=== PATIENT | female | born 1995 ===

== ENCOUNTER 2018-10-19 17:21 | Inpatient (IN) | payer BC ==
[2018-10-19] MEDS ORDERED: Water For Irrigation,Sterile 1,000 ML Container IRR PRN (17:37)
[2018-10-19] MEDS ORDERED: Misoprostol 200 MCG Tab PO PRN (17:37)
[2018-10-19] MEDS ORDERED: Nalbuphine 10 MG/1 ML Vial IVPUSH PRN (17:37)
[2018-10-19] MEDS ORDERED: Sodium Chloride 0.9% 10 ML SDV IV PRN (17:37)
[2018-10-19] MEDS ORDERED: Methylergonovine 0.2 MG/1 ML Amp IM PRN (17:37)
[2018-10-19] MEDS ORDERED: Lidocaine 1% 50 ML MDV INJECT PRN (17:37)
[2018-10-19] MEDS ORDERED: Sodium Chloride 0.9% 2.5 ML Syringe FLUSH PRN (17:37)
[2018-10-19] MEDS ORDERED: Tranexamic Acid 1,000 MG in Sodium Chloride 0.9% 100 ML IV PRN (17:37)
[2018-10-19] MEDS ORDERED: Sodium Chloride 0.9% 10 ML Syringe FLUSH PRN (17:37)
[2018-10-19] MEDS ORDERED: Carboprost Tromethamine 250 MCG/1 ML Amp IM PRN (17:37)
[2018-10-19] MEDS ORDERED: Terbutaline 1 MG/ML SDV SUBCUT PRN (17:40)
[2018-10-19] MEDS ORDERED: Misoprostol 25 MCG (1/4 of 100 MCG) Tab VAG PRN ×2 (17:40)
[2018-10-19] MEDS ORDERED: Oxytocin/0.9 % Sodium Chloride 30 UNIT/500 ML BAG IV SCH ×2 (17:45)
[2018-10-19] MEDS: Butorphanol 1 MG/ML SDV IVPUSH PRN (23:03)
[2018-10-20] MEDS: Lactated Ringers 1,000 ML IV SCH ×4 (00:55→14:01)
[2018-10-20] MEDS: Butorphanol 1 MG/ML SDV IVPUSH PRN ×2 (01:00→03:17)
--- NOTE | 2018-10-20 02:48 | PCM.PREANE ---
Preanesthetic Assessment - Anesthesia/Transfusion/Family Hx Anesthesia History: No Prior Anesthesia Family History of Anesthesia Reaction: No Transfusion History: No Prior Transfusion(s) Type of Transfusion Reactions: Reports: Unknown - Review of Systems General: No Symptoms Pulmonary: No Symptoms Cardiovascular: No Symptoms Gastrointestinal: No Symptoms Neurological: No Symptoms Other: Reports: None - Physical Assessment Height: 5 ft 2 in Weight: 105.687 kg ASA Class: 2 Mental Status: Alert & Oriented x3 Airway Class: Mallampati = 2 Dentition: Reports: Normal Dentition Thyro-Mental Finger Breadths: 3 Mouth Opening Finger Breadths: 3 ROM/Head Extension: Full Lungs: Clear to Auscultation, Normal Respiratory Effort Cardiovascular: Regular Rate, Regular Rhythm - Lab Values: Laboratory Last Values WBC 10.59 K/uL (4.0-11.0) 10/19/18 18:14 RBC 4.14 M/uL (4.30-5.90) L 10/19/18 18:14 Hgb 12.1 g/dL (12.0-16.0) 10/19/18 18:14 Hct 37.1 % (36.0-46.0) 10/19/18 18:14 MCV 89.6 fL (80.0-98.0) 10/19/18 18:14 MCH 29.2 pg (27.0-32.0) 10/19/18 18:14 MCHC 32.6 g/dL (31.0-37.0) 10/19/18 18:14 RDW Std Deviation 44.8 fl (28.0-62.0) 10/19/18 18:14 RDW Coeff of Otis 14 % (11.0-15.0) 10/19/18 18:14 Plt Count 246 K/uL (150-400) 10/19/18 18:14 MPV 11.50 fL (7.40-12.00) 10/19/18 18:14 Nucleated RBC % 0.0 /100WBC 10/19/18 18:14 Nucleated RBCs # 0 K/uL 10/19/18 18:14 Blood Type A POSITIVE 10/19/18 18:14 Antibody Screen NEGATIVE 10/19/18 18:14 - Allergies Allergies/Adverse Reactions: Allergies Allergy/AdvReac Type Severity Reaction Status Date / Time cinnamon Allergy Itching Verified 10/18/18 09:57 lavender (Lavandula Allergy Itching Verified 10/18/18 09:57 angustifolia) - Acknowledgements Anesthesia Type Planned: Epidural Pt an Appropriate Candidate for the Planned Anesthesia: Yes Alternatives and Risks of Anesthesia Discussed w Pt/Guardian: Yes Pt/Guardian Understands and Agrees with Anesthesia Plan: Yes PreAnesthesia Questionnaire HEENT History: Reports: None Cardiovascular History: Reports: None Respiratory History: Reports: None Gastrointestinal History: Reports: GERD Genitourinary History: Reports: None NEUROSURGICAL NURSE History: Reports: : 1 Para: 0 LMP (Approximate): Musculoskeletal History: Reports: None Neurological History: Reports: None Psychiatric History: Reports: Anxiety Endocrine/Metabolic History: Reports: Obesity/BMI 30+ Hematologic History: Reports: None Immunologic History: Reports: None Oncologic (Cancer) History: Reports: None Dermatologic History: Reports: None - Infectious Disease History Infectious Disease History: Reports: Chicken Pox - Past Surgical History Head Surgeries/Procedures: Reports: None HEENT Surgical History: Reports: None Cardiovascular Surgical History: Reports: None GI Surgical History: Reports: None Female Surgical History: Reports: None Endocrine Surgical History: Reports: None Musculoskeletal Surgical History: Reports: None Oncologic Surgical History: Reports: None Dermatological Surgical History: Reports: None - SUBSTANCE USE Smoking Status *Q: Never Smoker Second Hand Smoke Exposure: No Recreational Drug Use History: No - HOME MEDS Home Medications: Home Meds Vit #76/Iron,Carb/Fa [Pnv 29-1 Tablet] 1 tab PO DAILY 09/20/18 [History ] - CURRENT (IN HOUSE) MEDS Current Meds: Current Medications Butorphanol Tartrate (Stadol) 1 mg IVPUSH Q1H PRN PRN Reason: Pain Last Admin: 10/20/18 01:00 Dose: 1 mg Carboprost Tromethamine (Hemabate Ds) 250 mcg IM ASDIRECTED PRN PRN Reason: Post Hemorrhage Lactated Ringer's (Ringers, Lactated) 1,000 mls @ 150 mls/hr IV ASDIRECTED ABDIRAHMAN Last Admin: 10/20/18 00:55 Dose: 500 mls/hr Oxytocin/Sodium Chloride (Oxytocin 30 Unit/500 Ml-Ns) 30 unit in 500 mls @ 999 mls/hr IV TITRATE ABDIRAHMAN Tranexamic Acid 1,000 mg/ (Sodium Chloride) 110 mls @ 660 mls/hr IV ONETIME PRN PRN Reason: Bleeding Oxytocin/Sodium Chloride (Oxytocin 30 Unit/500 Ml-Ns) 30 unit in 500 mls @ 2 mls/hr IV TITRATE ABDIRAHMAN; Protocol Last Admin: 10/20/18 01:05 Dose: 2 munits/min, 2 mls/hr Lidocaine HCl (Xylocaine 1%) 50 ml INJECT ONETIME PRN PRN Reason: Laceration repair Methylergonovine Maleate (Methergine) 0.2 mg IM ASDIRECTED PRN PRN Reason: Post Hemorrhage Misoprostol (Cytotec) 200 mcg PO ONETIME PRN PRN Reason: Post Hemorrhage Misoprostol (Cytotec) 25 mcg VAG ONETIME PRN PRN Reason: Cervical Ripening Last Admin: 10/19/18 18:46 Dose: 25 mcg Misoprostol (Cytotec) 25 mcg VAG Q4H PRN PRN Reason: Cervical Ripening Nalbuphine HCl (Nubain) 10 mg IVPUSH Q1H PRN PRN Reason: Pain (severe 7-10) Sodium Chloride (Saline Flush) 10 ml FLUSH ASDIRECTED PRN PRN Reason: Keep Vein Open Sodium Chloride (Saline Flush) 2.5 ml FLUSH ASDIRECTED PRN PRN Reason: Keep Vein Open Sodium Chloride (Normal Saline) 10 ml IV ASDIRECTED PRN PRN Reason: IV Use Sterile Water (Sterile Water For Irrigation) 1,000 ml IRR ASDIRECTED PRN PRN Reason: delivery Terbutaline Sulfate (Brethine) 0.25 mg SUBCUT ASDIRECTED PRN PRN Reason: Tacysystole
[2018-10-20] MEDS ORDERED: fentaNYL 100 MCG/2 ML SDV ONE (17:42)
[2018-10-20] MEDS ORDERED: Bupivacaine 0.5% 30 ML SDV ONE (17:42)
[2018-10-20] MEDS ORDERED: Morphine PF 10 MG/10 ML SDV ONE (17:51)
[2018-10-20] MEDS ORDERED: ceFAZolin 1 GM Vial ONE (17:54)
[2018-10-20] MEDS ORDERED: Sodium Chloride 0.9% 40 ML ONE (17:54)
[2018-10-20] MEDS ORDERED: fentaNYL 100 MCG/2 ML SDV IVPUSH PRN (18:54)
[2018-10-20] MEDS ORDERED: Nalbuphine 10 MG/1 ML Vial IVPUSH PRN (18:54)
[2018-10-20] MEDS ORDERED: Ondansetron 4 MG/2 ML SDV IVPUSH PRN ×2 (18:54→19:10)
[2018-10-20] MEDS ORDERED: Acetaminophen/oxyCODONE 325-5 MG Tab PO PRN ×2 (18:54→19:10)
[2018-10-20] MEDS ORDERED: Naloxone 0.4 MG/ML Syringe IVPUSH PRN (18:54)
[2018-10-20] MEDS ORDERED: diphenhydrAMINE 50 MG/ML SDV IVPUSH PRN ×2 (18:54→19:10)
--- NOTE | 2018-10-20 19:02 | PCM.OPNOTE ---
<Megan Fernandes - Last Filed: 10/20/18 19:13> - General Post-Op/Procedure Note Date of Surgery/Procedure: 10/20/18 Operative Procedure(s): section Findings: delivery of live female infant. Weight 3300g. Apgars 9/9. 3vc. Placenta intact. Pre Op Diagnosis: 28y 40/4 induction of labor for post dates. Primary LTCS for arrest of descent Post-Op Diagnosis: same Anesthesia Technique: Epidural, Spinal Primary Surgeon: Alexa Du Maxillofacial Prosthodontist: Megan Fernandes Role of Maxillofacial Prosthodontist: 4th year medical student Fluid Replacement, Intraop: 1,400 EBL in mLs: 600 Condition: Stable <Alexa Du - Last Filed: 10/20/18 19:19> - General Post-Op/Procedure Note Complications: none known Free Text/Narrative:: Intake & Output 10/20/18 10/20/18 10/20/18 06:59 14:59 22:59 Intake Total 1400 Balance 1400 [id number]
[2018-10-20] MEDS ORDERED: Lanolin 100% Cream 7 GM Tube TOP PRN (19:10)
[2018-10-20] MEDS ORDERED: Bisacodyl 10 MG Supp RECTAL PRN (19:10)
[2018-10-20] MEDS ORDERED: Ibuprofen 800 MG Tab PO PRN (19:10)
[2018-10-20] MEDS ORDERED: Aluminum Hydroxide/Magnesium Hydroxide/Simethicone Susp 30 ML Cup PO PRN (19:10)
[2018-10-20] MEDS ORDERED: Lactated Ringers 1,000 ML IV ONE (19:15)
[2018-10-20] MEDS ORDERED: Ketorolac 30 MG/ML SDV ONE (19:25)
--- NOTE | 2018-10-20 19:44 | PCM.POSTAN ---
POST ANESTHESIA ASSESSMENT - MENTAL STATUS Mental Status: Alert - VITAL SIGNS Pulse Rate: 78 SaO2: 99 Resp Rate: 20 Blood Pressure: 126/78 Temperature: 38.8 C - RESPIRATORY Respiratory Status: Respiratory Rate WNL - CARDIOVASCULAR CV Status: Pulse Rate WNL - GASTROINTESTINAL GI Status: No Symptoms - PAIN Pain Score: 1 (Some soreness) - POST OP HYDRATION Hydration Status: Adequate & Stable (Doing well. No problems noted. Ready for transfer to floor.)
[2018-10-21] MEDS: Ketorolac 30 MG/ML SDV IVPUSH SCH ×5 (01:20→20:48)
--- NOTE | 2018-10-21 02:46 | OR ---
SURGEON: Alexa Du M.D. DATE OF PROCEDURE: 10/20/2018 PREOPERATIVE DIAGNOSES: 1. A 40-4/7 weeks intrauterine . 2. Arrest of descent. POSTOPERATIVE DIAGNOSES: 1. A 40-4/7 weeks intrauterine . 2. Arrest of descent. PROCEDURE: Primary low-transverse section. PRIMARY SURGEON: Alexa Du M.D. ANESTHESIA: Epidural converted to spinal. ESTIMATED BLOOD LOSS: 600 mL. FLUIDS: 1400 mL crystalloid in OR. COMPLICATIONS: None. FINDINGS: Viable female. score 9 at one minute and 9 at five minutes. Weight of 3300 g. Intact placenta, 3-vessel cord. Normal-appearing pelvis. DISPOSITION: Infant to Nursery, mom in PACU, stable. PROCEDURE DETAILS: Fransico is a 23-year-old G1, P0, at 40-3/7 weeks gestational age.She was admitted on the evening of 10/19/2018 for scheduled elective induction of labor due to patient request. She was initially unfavorable and initiated on Cytotec ripening, actually responded quite nicely to this and had category 1 heart tones. She became increasingly uncomfortable through the night hours. Underwent regional anesthesia in the form of an epidural. By the following morning, she was found to be 7 cm, 90% effaced, and at -1 station. Within the next 2 hours, progressed to 8 to 9 cm, underwent amniotomy. Light meconium-stained fluid was noted. She continued to progress, and shortly after 2 p.m., she was found to be complete, 100% effaced at 0 station, began pushing efforts. She pushed for the next 3 hours, was able to push to a +2 station but made minimal progress thereafter for approximately the last hour of pushing. Therefore, at assessment, I discussed options with the patient including potential for operative vaginal delivery for vacuum or delivery. The patient and family decided to proceed with delivery. Risks of procedure discussed with proper consent obtained. The patient was taken to the operating room where she underwent spinal anesthetic as her epidural had been dislodged. She became more comfortable once spinal was in. She was placed in a supine frog-leg position with leftward tilt. She was prepped and draped in usual sterile fashion. SCDs to lower extremities. Leary to gravity. Received Ancef prophylactically. Time-out was performed. Labor and delivery nurse was situated to allow for a vaginal hand during delivery. After the patient was prepped and draped in usual sterile fashion, anesthesia was tested and found to be adequate. A Pfannenstiel skin incision was created and carried down to the level of the rectus fascia, which was incised in the midline and lateralized on either side sharply and bluntly. The superior aspect of the fascia was tented upward, dissected sharply and bluntly from underlying muscles. In a similar manner, it was performed at the inferior aspect of the fascia. Rectus muscles and peritoneum were , and the peritoneum was entered. Rectus muscles and peritoneum were lateralized bluntly. Uterine position and position palpated. Self-retaining retractor now gently placed. Uterovesical reflection was visualized. Bladder flap was created sharply and bluntly. Bladder was mobilized from the lower uterine segment. Low transverse hysterotomy was now performed. Vaginal hand with labor and delivery nurse was used to deliver baby's head out of the pelvis. I was able to secure the head, flex, and deliver from the remainder of the pelvis. Fundal pressure was applied. The infant's head was delivered followed by shoulders, trunk, and remainder of body without difficulty. The infant's oropharynx and nares were bulb suctioned. The cord was clamped x2 and cut. Infant was handed off to the attending cable swager. Cord arterial, cord venous, cord blood samples obtained. The placenta was now delivered. Uterine cavity was cleared of all clot and debris. Hysterotomy repaired using 0 Vicryl in continuous running locked fashion followed by re-imbricating layer. Two areas of oozing were noted and were cauterized. Hemostasis thereafter evident. Posterior aspect of uterus inspected. No defects or hematomas were found to be forming. The areas were well irrigated and suction dried. Anterior aspect of the uterus inspected. Colonic gutters were cleared of all clot and debris, well irrigated, suction dried. Hysterotomy was found to be hemostatic. Self-retaining retractor gently placed. Bladder blade was placed. Once again inspected. Hysterotomy was found to be hemostatic. Bladder blade was removed. The rectus muscle and peritoneum were now reapproximated using 0 Vicryl in inverted mattress suture technique. Anterior aspect of muscle and posterior aspect of the fascia were closely inspected. Any areas of oozing were cauterized. Rectus fascia was reapproximated using 0 Vicryl in continuous running fashion beginning laterally on each side and meeting in the midline. Subcutaneous tissue was well irrigated and suction dried. Any areas of oozing were cauterized. Deep subcutaneous tissue was reapproximated using 3-0 plain in continuous running fashion. The skin edges were now reapproximated using 3-0 chromic on a Tre needle in subcuticular fashion followed by half-inch Steri-Strips. Sponge, instrument, and needle count was correct x2. The patient tolerated the procedure well overall. She will go to PACU in stable condition, to [facility]. LUISA / JACQUIE /[id number] KIMI
[2018-10-21] MEDS: Simethicone 80 MG Tab.Chew PO SCH ×4 (03:15→19:51)
--- NOTE | 2018-10-21 07:59 | PCM.PNPP ---
<Megan Fernandes - Last Filed: 10/21/18 07:56> - General Info Date of Service: 10/21/18 Functional Status: Reports: Pain Controlled - Review of Systems General: Reports: No Symptoms. Denies: Fever, Chills HEENT: Reports: No Symptoms. Denies: Headaches Pulmonary: Reports: No Symptoms. Denies: Shortness of Breath Cardiovascular: Reports: No Symptoms. Denies: Chest Pain, Palpitations Gastrointestinal: Reports: Abdominal Pain (Mild, but she has not gotten out of bed yet.) Genitourinary: Reports: No Symptoms (Catheter still in place ) Musculoskeletal: Reports: No Symptoms Skin: Reports: No Symptoms Neurological: Reports: No Symptoms Psychiatric: Reports: No Symptoms - General Info Date of Service: 10/21/18 - Patient Data Vital Signs - Most Recent: Last Vital Signs Temp 97.6 F 10/21/18 04:26 Pulse 89 10/21/18 06:00 Resp 15 10/21/18 06:00 BP 114/60 10/21/18 04:26 Pulse Ox 99 10/21/18 06:00 Weight - Most Recent: 105.687 kg I&O - Last 24 Hours: Intake & Output 10/20/18 10/21/18 10/21/18 22:59 06:59 14:59 Intake Total 3000 1215 Output Total 400 450 Balance 2600 765 Lab Results - Last 24 Hours: Laboratory Results - last 24 hr 10/20/18 10/21/18 Range/Units 18:17 05:40 Hgb 10.2 L (12.0-16.0) g/dL Hct 31.6 L (36.0-46.0) % Cord ABG pH 7.309 (7.18-7.38) Cord ABG Base Excess -9 (-10--2) Cord VBG Base Excess Not Reportable Med Orders - Current: Current Medications Al Hydroxide/Mg Hydroxide (Mag-Al Plus) 30 ml PO Q8H PRN PRN Reason: Heartburn Bisacodyl (Dulcolax) 10 mg RECTAL ONETIME PRN PRN Reason: Constipation Carboprost Tromethamine (Hemabate Ds) 250 mcg IM ASDIRECTED PRN PRN Reason: Post Hemorrhage Diphenhydramine HCl (Benadryl) 25 mg IVPUSH Q4H PRN PRN Reason: Itching Stop: 10/21/18 18:54 Diphenhydramine HCl (Benadryl) 25 mg IVPUSH Q6H PRN PRN Reason: Itching or Nausea Docusate Sodium (Colace) 100 mg PO BID [facility] Emollient Ointment (Lansinoh Hpa) 0 gm TOP ASDIRECTED PRN PRN Reason: Sore Nipples Fentanyl (Sublimaze) 50 mcg IVPUSH Q1H PRN PRN Reason: Pain (severe 7-10) Oxytocin/Sodium Chloride (Oxytocin 30 Unit/500 Ml-Ns) 30 unit in 500 mls @ 999 mls/hr IV TITRATE ABDIRAHMAN Tranexamic Acid 1,000 mg/ (Sodium Chloride) 110 mls @ 660 mls/hr IV ONETIME PRN PRN Reason: Bleeding Oxytocin/Sodium Chloride (Oxytocin 30 Unit/500 Ml-Ns) 30 unit in 500 mls @ 2 mls/hr IV TITRATE ABDIRAHMAN; Protocol Last Titration: 10/20/18 16:30 Dose: 14 munits/min, 14 mls/hr Ibuprofen (Motrin) 800 mg PO Q8H PRN PRN Reason: mild pain or fever Ketorolac Tromethamine (Toradol) 30 mg IVPUSH Q6H ABDIRAHMAN Stop: 10/21/18 19:16 Last Admin: 10/21/18 07:50 Dose: 30 mg Methylergonovine Maleate (Methergine) 0.2 mg IM ASDIRECTED PRN PRN Reason: Post Hemorrhage Nalbuphine HCl (Nubain) 5 mg IVPUSH ASDIRECTED PRN PRN Reason: Itching Naloxone HCl (Narcan) 0.1 mg IVPUSH ONETIME PRN PRN Reason: Respiratory Depression Stop: 10/21/18 18:54 Ondansetron HCl (Zofran) 4 mg IVPUSH Q6H PRN PRN Reason: Nausea Ondansetron HCl (Zofran) 4 mg IVPUSH Q4H PRN PRN Reason: Nausea/Vomiting Oxycodone/Acetaminophen (Percocet 325-5 Mg) 2 tab PO Q6H PRN PRN Reason: Pain (moderate 4-6) Oxycodone/Acetaminophen (Percocet 325-5 Mg) 1 tab PO Q4H PRN PRN Reason: Pain (moderate 4-6) Oxycodone/Acetaminophen (Percocet 325-5 Mg) 2 tab PO Q4H PRN PRN Reason: Pain (moderate 4-6) Simethicone (Simethicone) 160 mg PO QID [facility] Last Admin: 10/21/18 07:20 Dose: Not Given Sodium Chloride (Saline Flush) 10 ml FLUSH ASDIRECTED PRN PRN Reason: Keep Vein Open Sodium Chloride (Saline Flush) 2.5 ml FLUSH ASDIRECTED PRN PRN Reason: Keep Vein Open Sodium Chloride (Normal Saline) 10 ml IV ASDIRECTED PRN PRN Reason: IV Use Terbutaline Sulfate (Brethine) 0.25 mg SUBCUT ASDIRECTED PRN PRN Reason: Tacysystole Discontinued Medications Bupivacaine HCl (Marcaine 0.5%) Confirm Administered Dose 30 ml .ROUTE .STK-MED ONE Stop: 10/20/18 17:43 Butorphanol Tartrate (Stadol) 1 mg IVPUSH Q1H PRN PRN Reason: Pain Last Admin: 10/20/18 03:17 Dose: 1 mg Cefazolin Sodium (Ancef) Confirm Administered Dose 2 gm .ROUTE .STK-MED ONE Stop: 10/20/18 17:55 Fentanyl (Sublimaze) Confirm Administered Dose 100 mcg .ROUTE .STK-MED ONE Stop: 10/20/18 17:43 Lactated Ringer's (Ringers, Lactated) 1,000 mls @ 150 mls/hr IV ASDIRECTED [facility] Last Admin: 10/20/18 14:01 Dose: 150 mls/hr Fentanyl/Bupivacaine HCl (Vmmxpbmo-Kakxo-Ie 2 Mcg/Ml-0.125%) Confirm Administered Dose 100 mls @ as directed .ROUTE .STK-MED ONE Stop: 10/20/18 03:03 Fentanyl/Bupivacaine HCl (Sdwwmeqi-Bvsom-Uw 2 Mcg/Ml-0.125%) Confirm Administered Dose 100 mls @ as directed .ROUTE .STK-MED ONE Stop: 10/20/18 10:18 Acetaminophen (Ofirmev) Confirm Administered Dose 100 mls @ as directed IV .STK- MED ONE Stop: 10/20/18 17:43 Sodium Chloride (Normal Saline) Confirm Administered Dose 40 mls @ as directed .ROUTE .STK-MED ONE Stop: 10/20/18 17:55 Lactated Ringer's (Ringers, Lactated) 1,000 mls @ 125 mls/hr IV ASDIRECTED ONE Stop: 10/21/18 03:14 Ketorolac Tromethamine (Toradol) Confirm Administered Dose 30 mg .ROUTE .STK- MED ONE Stop: 10/20/18 19:26 Lidocaine HCl (Xylocaine 1%) 50 ml INJECT ONETIME PRN PRN Reason: Laceration repair Misoprostol (Cytotec) 200 mcg PO ONETIME PRN PRN Reason: Post Hemorrhage Misoprostol (Cytotec) 25 mcg VAG ONETIME PRN PRN Reason: Cervical Ripening Last Admin: 10/19/18 18:46 Dose: 25 mcg Misoprostol (Cytotec) 25 mcg VAG Q4H PRN PRN Reason: Cervical Ripening Morphine Sulfate (Duramorph Pf) Confirm Administered Dose 10 mg .ROUTE .STK-MED ONE Stop: 10/20/18 17:52 Nalbuphine HCl (Nubain) 10 mg IVPUSH Q1H PRN PRN Reason: Pain (severe 7-10) Sterile Water (Sterile Water For Irrigation) 1,000 ml IRR ASDIRECTED PRN PRN Reason: delivery - Infant Interaction Infant Disposition, : in Room with Family Interaction: Unable to Hold at this Time Feeding: Breastfed Infant; Nursed Well Support Person: , Mother - Recovery Exam Fundal Tone: Firm Fundal Level: 1 Fingerbreadths Below Umbilicus Fundal Placement: Midline Lochia Amount: Scant Lochia Color: Rubra/Red Episiotomy/Laceration: None Bladder Status: Indwelling Catheter in Place Urinary Elimination: Indwelling Catheter - Exam General: Alert, Oriented HEENT: Pupils Equal Neck: Supple Lungs: Clear to Auscultation, Normal Respiratory Effort Cardiovascular: Regular Rate, Regular Rhythm GI/Abdominal Exam: Normal Bowel Sounds, Soft, Non-Tender, No Organomegaly, No Distention, No Abnormal Bruit, No Mass, Pelvis Stable Extremities: Normal Inspection, Normal Range of Motion, Non-Tender, No Pedal Edema, Normal Capillary Refill Skin: Warm, Dry, Intact Wound/Incisions: Healing Well, Dressing Dry and Intact Neurological: No New Focal Deficit Psy/Mental Status: Alert, Normal Affect, Normal Mood - Problem List & Annotations (1) delivery delivered SNOMED Code(s): 061941847 Code(s): O82 - ENCOUNTER FOR DELIVERY WITHOUT INDICATION Status: Acute Current Visit: Yes (2) Arrested labor SNOMED Code(s): 60885726 Code(s): O62.1 - SECONDARY UTERINE INERTIA Status: Acute Current Visit: Yes - Problem List Review Problem List Initiated/Reviewed/Updated: Yes - Assessment Assessment:: POD1 s/p primary LTCS well Pain well controlled - Plan Plan:: Regular diet as tolerated Pain control PRN Ambulate PRN Remove doe today Routine care May go home tomorrow if diet is well tolerated and pain is controlled with oral medications <Alexa Du - Last Filed: 10/21/18 11:04> - Patient Data Vital Signs - Most Recent: Last Vital Signs Temp 36.4 C 10/21/18 07:15 Pulse 100 10/21/18 10:00 Resp 17 10/21/18 10:00 BP 111/59 L 10/21/18 07:15 Pulse Ox 97 10/21/18 10:00 I&O - Last 24 Hours: Intake & Output 10/20/18 10/21/18 10/21/18 22:59 06:59 14:59 Intake Total 3000 1215 Output Total 400 450 Balance 2600 765 Lab Results - Last 24 Hours: Laboratory Results - last 24 hr 10/20/18 10/21/18 Range/Units 18:17 05:40 Hgb 10.2 L (12.0-16.0) g/dL Hct 31.6 L (36.0-46.0) % Cord ABG pH 7.309 (7.18-7.38) Cord ABG Base Excess -9 (-10--2) Cord VBG Base Excess Not Reportable Med Orders - Current: Current Medications Al Hydroxide/Mg Hydroxide (Mag-Al Plus) 30 ml PO Q8H PRN PRN Reason: Heartburn Bisacodyl (Dulcolax) 10 mg RECTAL ONETIME PRN PRN Reason: Constipation Carboprost Tromethamine (Hemabate Ds) 250 mcg IM ASDIRECTED PRN PRN Reason: Post Hemorrhage Diphenhydramine HCl (Benadryl) 25 mg IVPUSH Q4H PRN PRN Reason: Itching Stop: 10/21/18 18:54 Diphenhydramine HCl (Benadryl) 25 mg IVPUSH Q6H PRN PRN Reason: Itching or Nausea Docusate Sodium (Colace) 100 mg PO BID [facility] Last Admin: 10/21/18 09:12 Dose: 100 mg Emollient Ointment (Lansinoh Hpa) 0 gm TOP ASDIRECTED PRN PRN Reason: Sore Nipples Fentanyl (Sublimaze) 50 mcg IVPUSH Q1H PRN PRN Reason: Pain (severe 7-10) Oxytocin/Sodium Chloride (Oxytocin 30 Unit/500 Ml-Ns) 30 unit in 500 mls @ 999 mls/hr IV TITRATE ABDIRAHMAN Tranexamic Acid 1,000 mg/ (Sodium Chloride) 110 mls @ 660 mls/hr IV ONETIME PRN PRN Reason: Bleeding Oxytocin/Sodium Chloride (Oxytocin 30 Unit/500 Ml-Ns) 30 unit in 500 mls @ 2 mls/hr IV TITRATE [facility]; Protocol Last Titration: 10/20/18 16:30 Dose: 14 munits/min, 14 mls/hr Ibuprofen (Motrin) 800 mg PO Q8H PRN PRN Reason: mild pain or fever Ketorolac Tromethamine (Toradol) 30 mg IVPUSH Q6H [facility] Stop: 10/21/18 19:16 Last Admin: 10/21/18 09:02 Dose: Not Given Methylergonovine Maleate (Methergine) 0.2 mg IM ASDIRECTED PRN PRN Reason: Post Hemorrhage Nalbuphine HCl (Nubain) 5 mg IVPUSH ASDIRECTED PRN PRN Reason: Itching Naloxone HCl (Narcan) 0.1 mg IVPUSH ONETIME PRN PRN Reason: Respiratory Depression Stop: 10/21/18 18:54 Ondansetron HCl (Zofran) 4 mg IVPUSH Q6H PRN PRN Reason: Nausea Ondansetron HCl (Zofran) 4 mg IVPUSH Q4H PRN PRN Reason: Nausea/Vomiting Oxycodone/Acetaminophen (Percocet 325-5 Mg) 2 tab PO Q6H PRN PRN Reason: Pain (moderate 4-6) Oxycodone/Acetaminophen (Percocet 325-5 Mg) 1 tab PO Q4H PRN PRN Reason: Pain (moderate 4-6) Oxycodone/Acetaminophen (Percocet 325-5 Mg) 2 tab PO Q4H PRN PRN Reason: Pain (moderate 4-6) Simethicone (Simethicone) 160 mg PO QID [facility] Last Admin: 10/21/18 07:20 Dose: Not Given Sodium Chloride (Saline Flush) 10 ml FLUSH ASDIRECTED PRN PRN Reason: Keep Vein Open Sodium Chloride (Saline Flush) 2.5 ml FLUSH ASDIRECTED PRN PRN Reason: Keep Vein Open Sodium Chloride (Normal Saline) 10 ml IV ASDIRECTED PRN PRN Reason: IV Use Terbutaline Sulfate (Brethine) 0.25 mg SUBCUT ASDIRECTED PRN PRN Reason: Tacysystole Discontinued Medications Bupivacaine HCl (Marcaine 0.5%) Confirm Administered Dose 30 ml .ROUTE .STK-MED ONE Stop: 10/20/18 17:43 Butorphanol Tartrate (Stadol) 1 mg IVPUSH Q1H PRN PRN Reason: Pain Last Admin: 10/20/18 03:17 Dose: 1 mg Cefazolin Sodium (Ancef) Confirm Administered Dose 2 gm .ROUTE .STK-MED ONE Stop: 10/20/18 17:55 Fentanyl (Sublimaze) Confirm Administered Dose 100 mcg .ROUTE .STK-MED ONE Stop: 10/20/18 17:43 Lactated Ringer's (Ringers, Lactated) 1,000 mls @ 150 mls/hr IV ASDIRECTED [facility] Last Admin: 10/20/18 14:01 Dose: 150 mls/hr Fentanyl/Bupivacaine HCl (Vqgpcusd-Yjgfv-Ug 2 Mcg/Ml-0.125%) Confirm Administered Dose 100 mls @ as directed .ROUTE .STK-MED ONE Stop: 10/20/18 03:03 Fentanyl/Bupivacaine HCl (Qksxvdfd-Uuqgt-Sz 2 Mcg/Ml-0.125%) Confirm Administered Dose 100 mls @ as directed .ROUTE .STK-MED ONE Stop: 10/20/18 10:18 Acetaminophen (Ofirmev) Confirm Administered Dose 100 mls @ as directed IV .STK- MED ONE Stop: 10/20/18 17:43 Sodium Chloride (Normal Saline) Confirm Administered Dose 40 mls @ as directed .ROUTE .STK-MED ONE Stop: 10/20/18 17:55 Lactated Ringer's (Ringers, Lactated) 1,000 mls @ 125 mls/hr IV ASDIRECTED ONE Stop: 10/21/18 03:14 Ketorolac Tromethamine (Toradol) Confirm Administered Dose 30 mg .ROUTE .STK- MED ONE Stop: 10/20/18 19:26 Lidocaine HCl (Xylocaine 1%) 50 ml INJECT ONETIME PRN PRN Reason: Laceration repair Misoprostol (Cytotec) 200 mcg PO ONETIME PRN PRN Reason: Post Hemorrhage Misoprostol (Cytotec) 25 mcg VAG ONETIME PRN PRN Reason: Cervical Ripening Last Admin: 10/19/18 18:46 Dose: 25 mcg Misoprostol (Cytotec) 25 mcg VAG Q4H PRN PRN Reason: Cervical Ripening Morphine Sulfate (Duramorph Pf) Confirm Administered Dose 10 mg .ROUTE .STK-MED ONE Stop: 10/20/18 17:52 Nalbuphine HCl (Nubain) 10 mg IVPUSH Q1H PRN PRN Reason: Pain (severe 7-10) Sterile Water (Sterile Water For Irrigation) 1,000 ml IRR ASDIRECTED PRN PRN Reason: delivery - My Orders Last 24 Hours: My Active Orders 10/20/18 19:10 Patient Status [ADT] Routine Ambulate [RC] PER UNIT ROUTINE Communication Order [RC] PER UNIT ROUTINE Communication Order [RC] PER UNIT ROUTINE Communication Order [RC] Per Unit Routine May Shower [RC] ASDIRECTED Notify Provider Intake and Out [RC] ASDIRECTED Notify Provider Vital Signs [RC] ASDIRECTED RT Incentive Spirometry [RC] Q2HWA Vital Signs [RC] PER UNIT ROUTINE Acetaminophen/oxyCODONE [Percocet 325-5 MG] 1 tab PO Q4H PRN Acetaminophen/oxyCODONE [Percocet 325-5 MG] 2 tab PO Q4H PRN Alum Hydrox/Mag Hydrox/Simeth [Mag-Al Plus] 30 ml PO Q8H PRN Bisacodyl [Dulcolax] 10 mg RECTAL ONETIME PRN Ibuprofen [Motrin] 800 mg PO Q8H PRN Lanolin [Lansinoh HPA] See Dose Instructions TOP ASDIRECTED PRN Ondansetron [Zofran] 4 mg IVPUSH Q4H PRN diphenhydrAMINE [Benadryl] 25 mg IVPUSH Q6H PRN Abdominal Binder [OM.PC] Routine Assess Lochia [WOMSER] Per Unit Routine Assess Uterine Involution [WOMSER] Per Unit Routine Breast Pump [WOMSER] Per Unit Routine Heat Therapy [OM.PC] Routine Ice Therapy [OM.PC] Routine Peripheral IV Discontinue [OM.PC] Routine Sequential Compression Device [OM.PC] Per Unit Routine 10/20/18 19:11 Antiembolic Devices [RC] PER UNIT ROUTINE 10/20/18 19:15 Ketorolac [Toradol] 30 mg IVPUSH Q6H 10/20/18 21:00 Docusate Sodium [Colace] 100 mg PO BID 10/20/18 Dinner Regular Diet [DIET] 10/21/18 00:00 Simethicone 160 mg PO QID - Plan Plan:: Patient seen and examined--agree with above
[2018-10-21] MEDS: Docusate Sodium 100 MG Cap PO SCH ×2 (09:12→20:49)
[2018-10-22] MEDS: Simethicone 80 MG Tab.Chew PO SCH ×3 (01:28→11:43)
[2018-10-22] MEDS: Acetaminophen/oxyCODONE 325-5 MG Tab PO PRN ×3 (02:57→13:45)
--- NOTE | 2018-10-22 07:32 | PCM.PNPP ---
<Megan Fernandes - Last Filed: 10/22/18 07:29> - General Info Date of Service: 10/22/18 Functional Status: Reports: Pain Controlled - Review of Systems General: Reports: No Symptoms. Denies: Fever, Chills HEENT: Reports: No Symptoms. Denies: Headaches Pulmonary: Reports: No Symptoms. Denies: Shortness of Breath, Pleuritic Chest Pain Cardiovascular: Reports: No Symptoms Gastrointestinal: Reports: Abdominal Pain (Incisional site pain. Cramping with attempts at and pumping) Genitourinary: Reports: No Symptoms. Denies: Dysuria Musculoskeletal: Reports: No Symptoms Skin: Reports: No Symptoms Neurological: Reports: No Symptoms Psychiatric: Reports: No Symptoms - General Info Date of Service: 10/22/18 - Patient Data Vital Signs - Most Recent: Last Vital Signs Temp 97.3 F 10/22/18 05:14 Pulse 98 10/22/18 05:14 Resp 18 10/22/18 05:14 BP 116/74 10/22/18 05:14 Pulse Ox 99 10/22/18 05:14 Weight - Most Recent: 105.687 kg I&O - Last 24 Hours: Intake & Output 10/21/18 10/22/18 10/22/18 22:59 06:59 14:59 Intake Total 300 Output Total 800 Balance -500 Med Orders - Current: Current Medications Al Hydroxide/Mg Hydroxide (Mag-Al Plus) 30 ml PO Q8H PRN PRN Reason: Heartburn Bisacodyl (Dulcolax) 10 mg RECTAL ONETIME PRN PRN Reason: Constipation Carboprost Tromethamine (Hemabate Ds) 250 mcg IM ASDIRECTED PRN PRN Reason: Post Hemorrhage Diphenhydramine HCl (Benadryl) 25 mg IVPUSH Q6H PRN PRN Reason: Itching or Nausea Docusate Sodium (Colace) 100 mg PO BID [facility] Last Admin: 10/21/18 20:49 Dose: 100 mg Emollient Ointment (Lansinoh Hpa) 0 gm TOP ASDIRECTED PRN PRN Reason: Sore Nipples Fentanyl (Sublimaze) 50 mcg IVPUSH Q1H PRN PRN Reason: Pain (severe 7-10) Oxytocin/Sodium Chloride (Oxytocin 30 Unit/500 Ml-Ns) 30 unit in 500 mls @ 999 mls/hr IV TITRATE [facility] Tranexamic Acid 1,000 mg/ (Sodium Chloride) 110 mls @ 660 mls/hr IV ONETIME PRN PRN Reason: Bleeding Oxytocin/Sodium Chloride (Oxytocin 30 Unit/500 Ml-Ns) 30 unit in 500 mls @ 2 mls/hr IV TITRATE [facility]; Protocol Last Titration: 10/20/18 16:30 Dose: 14 munits/min, 14 mls/hr Ibuprofen (Motrin) 800 mg PO Q8H PRN PRN Reason: mild pain or fever Last Admin: 10/22/18 04:50 Dose: 800 mg Methylergonovine Maleate (Methergine) 0.2 mg IM ASDIRECTED PRN PRN Reason: Post Hemorrhage Nalbuphine HCl (Nubain) 5 mg IVPUSH ASDIRECTED PRN PRN Reason: Itching Ondansetron HCl (Zofran) 4 mg IVPUSH Q6H PRN PRN Reason: Nausea Ondansetron HCl (Zofran) 4 mg IVPUSH Q4H PRN PRN Reason: Nausea/Vomiting Oxycodone/Acetaminophen (Percocet 325-5 Mg) 2 tab PO Q6H PRN PRN Reason: Pain (moderate 4-6) Oxycodone/Acetaminophen (Percocet 325-5 Mg) 1 tab PO Q4H PRN PRN Reason: Pain (moderate 4-6) Last Admin: 10/22/18 02:57 Dose: 1 tab Oxycodone/Acetaminophen (Percocet 325-5 Mg) 2 tab PO Q4H PRN PRN Reason: Pain (moderate 4-6) Simethicone (Simethicone) 160 mg PO QID [facility] Last Admin: 10/22/18 06:21 Dose: 160 mg Sodium Chloride (Saline Flush) 10 ml FLUSH ASDIRECTED PRN PRN Reason: Keep Vein Open Sodium Chloride (Saline Flush) 2.5 ml FLUSH ASDIRECTED PRN PRN Reason: Keep Vein Open Sodium Chloride (Normal Saline) 10 ml IV ASDIRECTED PRN PRN Reason: IV Use Terbutaline Sulfate (Brethine) 0.25 mg SUBCUT ASDIRECTED PRN PRN Reason: Tacysystole Discontinued Medications Bupivacaine HCl (Marcaine 0.5%) Confirm Administered Dose 30 ml .ROUTE .STK-MED ONE Stop: 10/20/18 17:43 Butorphanol Tartrate (Stadol) 1 mg IVPUSH Q1H PRN PRN Reason: Pain Last Admin: 10/20/18 03:17 Dose: 1 mg Cefazolin Sodium (Ancef) Confirm Administered Dose 2 gm .ROUTE .STK-MED ONE Stop: 10/20/18 17:55 Diphenhydramine HCl (Benadryl) 25 mg IVPUSH Q4H PRN PRN Reason: Itching Stop: 10/21/18 18:54 Fentanyl (Sublimaze) Confirm Administered Dose 100 mcg .ROUTE .STK-MED ONE Stop: 10/20/18 17:43 Lactated Ringer's (Ringers, Lactated) 1,000 mls @ 150 mls/hr IV ASDIRECTED [facility] Last Admin: 10/20/18 14:01 Dose: 150 mls/hr Fentanyl/Bupivacaine HCl (Ghaoiueg-Oxrsi-Jq 2 Mcg/Ml-0.125%) Confirm Administered Dose 100 mls @ as directed .ROUTE .STK-MED ONE Stop: 10/20/18 03:03 Fentanyl/Bupivacaine HCl (Dklydbvp-Xpiog-Ja 2 Mcg/Ml-0.125%) Confirm Administered Dose 100 mls @ as directed .ROUTE .STK-MED ONE Stop: 10/20/18 10:18 Acetaminophen (Ofirmev) Confirm Administered Dose 100 mls @ as directed IV .STK- MED ONE Stop: 10/20/18 17:43 Sodium Chloride (Normal Saline) Confirm Administered Dose 40 mls @ as directed .ROUTE .STK-MED ONE Stop: 10/20/18 17:55 Lactated Ringer's (Ringers, Lactated) 1,000 mls @ 125 mls/hr IV ASDIRECTED ONE Stop: 10/21/18 03:14 Ketorolac Tromethamine (Toradol) 30 mg IVPUSH Q6H [facility] Stop: 10/21/18 19:16 Last Admin: 10/21/18 20:48 Dose: 30 mg Ketorolac Tromethamine (Toradol) Confirm Administered Dose 30 mg .ROUTE .STK- MED ONE Stop: 10/20/18 19:26 Lidocaine HCl (Xylocaine 1%) 50 ml INJECT ONETIME PRN PRN Reason: Laceration repair Misoprostol (Cytotec) 200 mcg PO ONETIME PRN PRN Reason: Post Hemorrhage Misoprostol (Cytotec) 25 mcg VAG ONETIME PRN PRN Reason: Cervical Ripening Last Admin: 10/19/18 18:46 Dose: 25 mcg Misoprostol (Cytotec) 25 mcg VAG Q4H PRN PRN Reason: Cervical Ripening Morphine Sulfate (Duramorph Pf) Confirm Administered Dose 10 mg .ROUTE .STK-MED ONE Stop: 10/20/18 17:52 Nalbuphine HCl (Nubain) 10 mg IVPUSH Q1H PRN PRN Reason: Pain (severe 7-10) Naloxone HCl (Narcan) 0.1 mg IVPUSH ONETIME PRN PRN Reason: Respiratory Depression Stop: 10/21/18 18:54 Sterile Water (Sterile Water For Irrigation) 1,000 ml IRR ASDIRECTED PRN PRN Reason: delivery - Interaction Disposition, : in Room with Family Infant Interaction: Holding Feeding: Attempted ; Nursed Fair/Poor, Bottle Fed ( Latching ok but having trouble with continued . Attempted pumping but had moderate cramping and little milk production. Now using formula and bottle feeding. ), Difficulty with Latch-on Support Person: , Mother - Recovery Exam Fundal Tone: Firm Fundal Level: 1 Fingerbreadths Below Umbilicus Fundal Placement: Midline Lochia Amount: Scant Lochia Color: Rubra/Red Episiotomy/Laceration: None Bladder Status: Voiding Urinary Elimination: Voided - Exam General: Alert, Oriented HEENT: Pupils Equal Neck: Supple Lungs: Clear to Auscultation, Normal Respiratory Effort Cardiovascular: Regular Rate, Regular Rhythm GI/Abdominal Exam: Normal Bowel Sounds, Soft, Non-Tender, No Organomegaly, No Distention, No Abnormal Bruit, No Mass, Pelvis Stable Extremities: Normal Inspection, Normal Range of Motion, Non-Tender, No Pedal Edema, Normal Capillary Refill Skin: Warm, Dry, Intact Wound/Incisions: Healing Well Neurological: No New Focal Deficit Psy/Mental Status: Alert, Normal Affect, Normal Mood - Problem List & Annotations (1) delivery delivered SNOMED Code(s): 599134841 Code(s): O82 - ENCOUNTER FOR DELIVERY WITHOUT INDICATION Status: Acute Current Visit: Yes (2) Arrested labor SNOMED Code(s): 31221142 Code(s): O62.1 - SECONDARY UTERINE INERTIA Status: Acute Current Visit: Yes - Problem List Review Problem List Initiated/Reviewed/Updated: Yes - Assessment Assessment:: POD2 s/p primary LTCS well Pain well controlled Patient would like to go home today - Plan Plan:: Regular diet Pain control PRN Routine care May discharge to home today <Alexa uD - Last Filed: 10/22/18 09:01> - Patient Data Vital Signs - Most Recent: Last Vital Signs Temp 36.6 C 10/22/18 07:50 Pulse 95 10/22/18 07:50 Resp 16 10/22/18 07:50 BP 129/76 10/22/18 07:50 Pulse Ox 98 10/22/18 07:50 I&O - Last 24 Hours: Intake & Output 10/21/18 10/22/18 10/22/18 22:59 06:59 14:59 Intake Total 300 Output Total 800 Balance -500 Med Orders - Current: Current Medications Al Hydroxide/Mg Hydroxide (Mag-Al Plus) 30 ml PO Q8H PRN PRN Reason: Heartburn Bisacodyl (Dulcolax) 10 mg RECTAL ONETIME PRN PRN Reason: Constipation Carboprost Tromethamine (Hemabate Ds) 250 mcg IM ASDIRECTED PRN PRN Reason: Post Hemorrhage Diphenhydramine HCl (Benadryl) 25 mg IVPUSH Q6H PRN PRN Reason: Itching or Nausea Docusate Sodium (Colace) 100 mg PO BID [facility] Last Admin: 10/21/18 20:49 Dose: 100 mg Emollient Ointment (Lansinoh Hpa) 0 gm TOP ASDIRECTED PRN PRN Reason: Sore Nipples Fentanyl (Sublimaze) 50 mcg IVPUSH Q1H PRN PRN Reason: Pain (severe 7-10) Oxytocin/Sodium Chloride (Oxytocin 30 Unit/500 Ml-Ns) 30 unit in 500 mls @ 999 mls/hr IV TITRATE [facility] Tranexamic Acid 1,000 mg/ (Sodium Chloride) 110 mls @ 660 mls/hr IV ONETIME PRN PRN Reason: Bleeding Oxytocin/Sodium Chloride (Oxytocin 30 Unit/500 Ml-Ns) 30 unit in 500 mls @ 2 mls/hr IV TITRATE [facility]; Protocol Last Titration: 10/20/18 16:30 Dose: 14 munits/min, 14 mls/hr Ibuprofen (Motrin) 800 mg PO Q8H PRN PRN Reason: mild pain or fever Last Admin: 10/22/18 04:50 Dose: 800 mg Methylergonovine Maleate (Methergine) 0.2 mg IM ASDIRECTED PRN PRN Reason: Post Hemorrhage Nalbuphine HCl (Nubain) 5 mg IVPUSH ASDIRECTED PRN PRN Reason: Itching Ondansetron HCl (Zofran) 4 mg IVPUSH Q6H PRN PRN Reason: Nausea Ondansetron HCl (Zofran) 4 mg IVPUSH Q4H PRN PRN Reason: Nausea/Vomiting Oxycodone/Acetaminophen (Percocet 325-5 Mg) 2 tab PO Q6H PRN PRN Reason: Pain (moderate 4-6) Oxycodone/Acetaminophen (Percocet 325-5 Mg) 1 tab PO Q4H PRN PRN Reason: Pain (moderate 4-6) Last Admin: 10/22/18 02:57 Dose: 1 tab Oxycodone/Acetaminophen (Percocet 325-5 Mg) 2 tab PO Q4H PRN PRN Reason: Pain (moderate 4-6) Simethicone (Simethicone) 160 mg PO QID [facility] Last Admin: 10/22/18 06:21 Dose: 160 mg Sodium Chloride (Saline Flush) 10 ml FLUSH ASDIRECTED PRN PRN Reason: Keep Vein Open Sodium Chloride (Saline Flush) 2.5 ml FLUSH ASDIRECTED PRN PRN Reason: Keep Vein Open Sodium Chloride (Normal Saline) 10 ml IV ASDIRECTED PRN PRN Reason: IV Use Terbutaline Sulfate (Brethine) 0.25 mg SUBCUT ASDIRECTED PRN PRN Reason: Tacysystole Discontinued Medications Bupivacaine HCl (Marcaine 0.5%) Confirm Administered Dose 30 ml .ROUTE .STK-MED ONE Stop: 10/20/18 17:43 Butorphanol Tartrate (Stadol) 1 mg IVPUSH Q1H PRN PRN Reason: Pain Last Admin: 10/20/18 03:17 Dose: 1 mg Cefazolin Sodium (Ancef) Confirm Administered Dose 2 gm .ROUTE .STK-MED ONE Stop: 10/20/18 17:55 Diphenhydramine HCl (Benadryl) 25 mg IVPUSH Q4H PRN PRN Reason: Itching Stop: 10/21/18 18:54 Fentanyl (Sublimaze) Confirm Administered Dose 100 mcg .ROUTE .STK-MED ONE Stop: 10/20/18 17:43 Lactated Ringer's (Ringers, Lactated) 1,000 mls @ 150 mls/hr IV ASDIRECTED [facility] Last Admin: 10/20/18 14:01 Dose: 150 mls/hr Fentanyl/Bupivacaine HCl (Hhjpmuna-Nvmvp-Ra 2 Mcg/Ml-0.125%) Confirm Administered Dose 100 mls @ as directed .ROUTE .K-MED ONE Stop: 10/20/18 03:03 Fentanyl/Bupivacaine HCl (Rpbtnafq-Tsqzx-Bl 2 Mcg/Ml-0.125%) Confirm Administered Dose 100 mls @ as directed .ROUTE .[facility]-MED ONE Stop: 10/20/18 10:18 Acetaminophen (Ofirmev) Confirm Administered Dose 100 mls @ as directed IV .STK- MED ONE Stop: 10/20/18 17:43 Sodium Chloride (Normal Saline) Confirm Administered Dose 40 mls @ as directed .ROUTE .STK-MED ONE Stop: 10/20/18 17:55 Lactated Ringer's (Ringers, Lactated) 1,000 mls @ 125 mls/hr IV ASDIRECTED ONE Stop: 10/21/18 03:14 Ketorolac Tromethamine (Toradol) 30 mg IVPUSH Q6H [facility] Stop: 10/21/18 19:16 Last Admin: 10/21/18 20:48 Dose: 30 mg Ketorolac Tromethamine (Toradol) Confirm Administered Dose 30 mg .ROUTE .STK- MED ONE Stop: 10/20/18 19:26 Lidocaine HCl (Xylocaine 1%) 50 ml INJECT ONETIME PRN PRN Reason: Laceration repair Misoprostol (Cytotec) 200 mcg PO ONETIME PRN PRN Reason: Post Hemorrhage Misoprostol (Cytotec) 25 mcg VAG ONETIME PRN PRN Reason: Cervical Ripening Last Admin: 10/19/18 18:46 Dose: 25 mcg Misoprostol (Cytotec) 25 mcg VAG Q4H PRN PRN Reason: Cervical Ripening Morphine Sulfate (Duramorph Pf) Confirm Administered Dose 10 mg .ROUTE .STK-MED ONE Stop: 10/20/18 17:52 Nalbuphine HCl (Nubain) 10 mg IVPUSH Q1H PRN PRN Reason: Pain (severe 7-10) Naloxone HCl (Narcan) 0.1 mg IVPUSH ONETIME PRN PRN Reason: Respiratory Depression Stop: 10/21/18 18:54 Sterile Water (Sterile Water For Irrigation) 1,000 ml IRR ASDIRECTED PRN PRN Reason: delivery - Plan Plan:: Patient seen and examined--agree with discharge to home today. Follow up at [facility] 2 and 6 weeks, Discharge instructions reviewed.
== END 2018-10-22 18:13 | disposition home or self-care (01) | DRG 540 ==
LOC: MW.OBCHECK 17:21 → MW.OB 17:39 → MW.OBCHECK 18:00 → MW.OB 18:00 → OBSVTOIN 10-20 19:10 → MW.OB 10-20 19:11
PROVIDERS: ADMIT Obstetrics & Gynecology; ATTEND Obstetrics & Gynecology
PROC: 10D00Z1 Extraction of Products of Conception, Low, Open Approach (ICD-10-PCS; principal; 2018-10-20)
DX: O48.0 Post-term pregnancy (principal); O77.0 Labor and delivery complicated by meconium in amniotic fluid; O62.1 Secondary uterine inertia; E66.9 Obesity, unspecified; O99.214 Obesity complicating childbirth; Z37.0 Single live birth; Z3A.40 40 weeks gestation of pregnancy
CPT/HCPCS: 01967; 01968; 36415; 59025; 82803; 85014; 85018; 85027; 86850; 86900; 86901; A9270-GY; J0131; J0595; J0690; J1885; J2270; J2590; J3010; J3490; J7120